=== PATIENT | male | born 1985 | race Two or more races ===

== ENCOUNTER 2024-09-09 02:51 | Emergency (ER) | payer SELFPAY ==
[2024-09-09 02:55] VITALS: BP 156/99; PULSE 112; RESP 18; TEMP 36.9; O2SAT 98; BMI 25.8
[2024-09-09 02:56] VITALS: BMI 25.8
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
== END 2024-09-09 05:20 ==
PROVIDERS: Emergency Provider Emergency Medicine
DX: Z02.89 Encounter for other administrative examinations (principal); R51.9 Headache, unspecified
CPT/HCPCS: 70450; 70486; 99284